=== PATIENT | female | born 1975 | race Caucasian/White ===

== ENCOUNTER 2019-04-14 15:57 | Emergency (ER) | payer OTHER ==
[~2019-04-14] VITALS: Ht 152.4 cm; Wt 98.5 kg
[~2019-04-14 15:57] MED LIST: ACET500C5 PO; DICL100G37 TOP
[2019-04-14 16:02] VITALS: Ht 152.4 cm; Wt 98.5 kg
[2019-04-14 21:16] VITALS: BP 163/90; PULSE 61; RESP 16
== END 2019-04-14 21:17 | disposition home or self-care (01) ==
LOC: FTE 15:57
DX: M25.561 Pain in right knee (principal)
CPT/HCPCS: 84560; 85025; 85651; 86140; 93971; Z7502; Z7610